=== PATIENT | female | born 1995 | race Caucasian/White ===

== ENCOUNTER 2017-10-24 07:16 | Inpatient (IN) | payer OTHER ==
--- NOTE | 2017-10-24 08:15 | HP ---
General Information - General Information Maternal Age: 22 Grav: 6 Para: 2 SAB: 0 IEA: 3 Estimated Due Date: 10/21/17 Determined By: LMP Gestational Age in Weeks and Days: 40 Weeks and 3 Days Maternal Blood Type and Rh: A Positive - Results this Serology/RPR Result: Non-Reactive Rubella Result: Immune HBsAg Result: Negative HIV Result: Negative GBS Culture Result: Negative Past Medical History Delivery History: Hx Uncomplicated Vaginal Delivery Pertinent Past Medical History: See Records Past Medical History Comment: history of drug abuse - Antepartal Records Antepartal Records: Reviewed, Uncomplicated Review of Systems Genitourinary: No Leaking Fluid Musculoskeletal: Back Pain Movement: Normal Exam Allergies/Adverse Reactions: Allergies MS Sulfa Antibiotics [Sulfa Antibiotics] Allergy (Intermediate, Verified 07:58) Hives rash - Measurements Height: 5 ft 3 in Weight: 191 lb Weight in lbs: 191 Body Mass Index (BMI): 33.8 Pre- Weight: 150 lb Weight Gained This : 41 lbs and 0 ozs - Exam Abdomen: No Upper Quadrant Pain Breast: Breast Exam Deferred CVA: No CVA Tenderness Extremities: Edema - +1 Heart: Normal Rhythm/Heart Sounds HEENT: No Significant Findings Lungs: Clear Bilaterally Rectal: Rectal Exam Deferred Reflexes: DTR 2+ Thyroid: No Thyromegaly - Cervical Exam 5cm 80% -2 - Membranes Hours Since SROM: arom 0800 EFM Findings - External Monitor Findings Baseline Heart Rate: 150 External Monitor Findings: Accelerations Present, Variability Moderate Contractions: Regular, Mild, 45-90 Seconds Assessment/Plan - Reason for Visit Reason for Visit: posterm gbs negative - Plan Plan: Induction - Date/Time of Admission Date of Admission: 10/24/17 Time of Admission: 08:00
[2017-10-24 08:21] LABS: ABS Basophils 0 10^3/ul (0-0.2); ABS Eosinophils 0.2 10^3/ul (0-0.6); ABS Lymphocytes 2.1 10^3/ul (1.0-4.8); ABS Monocytes 0.6 10^3/ul (0-0.8); ABS Neutrophils 8.1 10^3/ul (1.5-7.7); ABS Nucleated RBC 0 10^3/ul; Eosinophil % 1.5 % (0-6); Hematocrit 35 % (35-47); Hemoglobin 11.6 g/dl (12.0-16.0); Lymphocyte % 19.1 % (25-47); Mean Corpuscular HGB Conc 34 g/dl (31-36); Mean Corpuscular Hemoglobin 31 pg (27-31); Mean Corpuscular Volume 91 fL (80-97); Mean Platelet Volume 9 um3 (7.4-10.4); Nucleated Red Blood Cells % 0; Platelet Count 190 10^3/ul (150-450); Red Blood Count 3.78 10^6/ul (4.0-5.4); Red Cell Distribution Width 14 % (10.5-15)
[2017-10-24] MEDS ORDERED: Oxytocin in LR* 20 UNITS/1,000 ML BAG IVPB SCH ×2 (09:00→13:03)
[2017-10-24] MEDS ORDERED: fentaNYL* 50 MCG/ML 2 ML VIAL (100 MCG VIAL) ONE (11:16)
[2017-10-24] MEDS ORDERED: Dibucaine 1% 28.35 GM TUBE PR PRN (13:01)
[2017-10-24] MEDS ORDERED: Glycerin ADULT SUPP PR PRN (13:01)
[2017-10-24] MEDS ORDERED: Witch Hazel PAD* JAR TOPICAL PRN (13:01)
[2017-10-24] MEDS ORDERED: Fluconazole 100 MG TAB* TAB PO ONE (13:30)
[2017-10-24] MEDS: Ibuprofen TAB* 600 MG PO PRN ×2 (14:13→19:38)
[2017-10-24] MEDS: Acetaminophen TAB* 325 MG PO PRN ×2 (15:20→21:00)
[2017-10-24] MEDS: Docusate CAP* 100 MG PO SCH ×2 (15:21→19:39)
[2017-10-24] MEDS ORDERED: Simethicone TAB* 80 MG TAB.CHEW PO SCH (17:30)
[2017-10-25] MEDS: Ibuprofen TAB* 600 MG PO PRN ×2 (02:44→20:12)
[2017-10-25 06:52] LABS: ABS Basophils 0 10^3/ul (0-0.2); ABS Eosinophils 0.2 10^3/ul (0-0.6); ABS Lymphocytes 2.4 10^3/ul (1.0-4.8); ABS Monocytes 0.6 10^3/ul (0-0.8); ABS Neutrophils 8.2 10^3/ul (1.5-7.7); ABS Nucleated RBC 0 10^3/ul; Eosinophil % 1.3 % (0-6); Hematocrit 33 % (35-47); Hemoglobin 11.1 g/dl (12.0-16.0); Mean Corpuscular HGB Conc 34 g/dl (31-36); Mean Corpuscular Hemoglobin 31 pg (27-31); Mean Corpuscular Volume 92 fL (80-97); Mean Platelet Volume 8 um3 (7.4-10.4); Nucleated Red Blood Cells % 0.1; Platelet Count 155 10^3/ul (150-450); Red Blood Count 3.58 10^6/ul (4.0-5.4); Red Cell Distribution Width 14 % (10.5-15); White Blood Count 11.4 10^3/ul (3.5-10.8)
[2017-10-25] MEDS: Acetaminophen TAB* 325 MG PO PRN ×2 (08:29→23:02)
[2017-10-25] MEDS: Docusate CAP* 100 MG PO SCH ×3 (08:29→20:12)
[2017-10-25] MEDS ORDERED: Ferrous Gluconate TAB* 324 MG TAB PO SCH (09:00)
[2017-10-26 07:35] VITALS: BP 110/63
[2017-10-26] MEDS: Docusate CAP* 100 MG PO SCH (10:08)
[2017-10-26] MEDS: Ibuprofen TAB* 600 MG PO PRN (10:08)
== END 2017-10-26 11:22 | disposition home or self-care (01) | DRG 560 ==
LOC: MCHOBOUT 07:16 → MCHOB 07:49
PROVIDERS: ADMIT Obstetrics & Gynecology; ATTEND Obstetrics & Gynecology
PROC: 10E0XZZ Delivery of Products of Conception, External Approach (ICD-10-PCS; principal; 2017-10-24)
PROC: 3E033VJ Introduction of Other Hormone into Peripheral Vein, Percutaneous Approach (ICD-10-PCS; 2017-10-24)
PROC: 10907ZC Drainage of Amniotic Fluid, Therapeutic from Products of Conception, Via Natural or Artificial Opening (ICD-10-PCS; 2017-10-24)
PROC: 0KQM0ZZ Repair Perineum Muscle, Open Approach (ICD-10-PCS; 2017-10-24)
DX: O48.0 Post-term pregnancy (principal); O70.1 Second degree perineal laceration during delivery; O77.0 Labor and delivery complicated by meconium in amniotic fluid; Z3A.40 40 weeks gestation of pregnancy; Z37.0 Single live birth
CPT/HCPCS: 36415; 80307; 85025; 86850; 86900; 86901; A9270-GY; J3010

== ENCOUNTER 2018-05-19 12:18 | Day surgery (SDC) | payer OTHER ==
[2018-05-19 13:26] LABS: ABS Basophils 0 10^3/ul (0-0.2); ABS Eosinophils 0.1 10^3/ul (0-0.6); ABS Lymphocytes 2.1 10^3/ul (1.0-4.8); ABS Monocytes 0.6 10^3/ul (0-0.8); ABS Neutrophils 11.7 10^3/ul (1.5-7.7); ABS Nucleated RBC 0 10^3/ul; Eosinophil % 0.6 % (0-6); Hematocrit 34 % (35-47); Hemoglobin 11.7 g/dl (12.0-16.0); Lymphocyte % 14.4 % (25-47); Mean Corpuscular HGB Conc 34 g/dl (31-36); Mean Corpuscular Hemoglobin 28 pg (27-31); Mean Corpuscular Volume 84 fL (80-97); Mean Platelet Volume 8.5 um3 (7.4-10.4); Nucleated Red Blood Cells % 0.1; Platelet Count 253 10^3/ul (150-450); Red Blood Count 4.11 10^6/ul (4.00-5.40); Red Cell Distribution Width 13 % (10.5-15); White Blood Count 14.5 10^3/ul (3.5-10.8)
[2018-05-19 13:44] LABS: EGFR Non-African American 141.2 (>60)
--- NOTE | 2018-05-19 13:45 | ED ---
Abdominal Pain/Female - HPI Summary HPI Summary: This pt is a 23 y/o female, , presenting to [facility] c/o lower abd pain and vaginal bleeding since yesterday. 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 Her last bowel movement was 2 days ago. She notes she normally has a bowel movement every 4 days due to taking suboxone. Pt does take OTC stool softeners. Denies cough, chest pain, SOB, fever, chills, LE swelling. Pt states she has never had these symptoms in the past. LMP: 2 weeks ago. Pt denies possibility of . Pt is sexually active but states not recently. She is a current smoker and drinks alcohol occasionally. - History of Current Complaint Chief Complaint: EDVaginalBleeding Stated Complaint: ABD PAIN/VAGINAL BLEEDING Time Seen by Provider: 05/19/18 13:34 Hx Obtained From: Patient Onset/Duration: Lasting Days - 1, Still Present Timing: Days - 1 Severity Currently: Severe Pain Intensity: 9 Pain Scale Used: 0-10 Numeric Location: Other - lower abd Radiates: No Character: Cramping Aggravating Factor(s): Nothing Alleviating Factor(s): Nothing Associated Signs and Symptoms: Positive: Constipation, Vaginal Bleeding, Other: - POS: abd distension, pressure in rectum. NEG: SOB, chills, lower ext. swelling. Negative: Fever, Cough, Chest Pain Allergies/Adverse Reactions: Allergies Allergy/AdvReac Type Severity Reaction Status Date / Time Sulfa (Sulfonamide Allergy Hives Verified 05/19/18 12:25 Antibiotics) PMH/Surg Hx/FS Hx/Imm Hx Endocrine/Hematology History: Denies: Hx Anticoagulant Therapy, Hx Diabetes Cardiovascular History: Denies: Hx Hypertension Infectious Disease History: No Infectious Disease History: Denies: Traveled Outside the [place] in Last 30 Days - Family History Known Family History: Negative: Cardiac Disease, Hypertension, Diabetes - Social History Alcohol Use: Occasionally Substance Use Type: Reports: None, Heroin Substance Use Comment - Amount & Last Used: currently in outpatient rehab for heroin use. Smoking Status (MU): Light Every Day Tobacco Smoker Type: Cigarettes Have You Smoked in the Last Year: Yes Review of Systems Negative: Fever, Chills Negative: Chest Pain Negative: Shortness Of Breath, Cough Gastrointestinal: Other - abd distension, constipation Positive: Abdominal Pain - lower Genitourinary: Other - vaginal bleeding, pressure in rectum Negative: Edema - in LE All Other Systems Reviewed And Are Negative: Yes Physical Exam - Summary Physical Exam Summary: VITAL SIGNS: Reviewed. GENERAL: Patient is a well-developed and nourished female who is lying comfortable in the stretcher. Patient is not in any acute respiratory distress. HEAD AND FACE: Normocephalic and atraumatic. EYES: PERRLA, EOMI x 2, No injected conjunctiva. EARS: Hearing grossly intact. Ear canals and tympanic membranes are WNL. MOUTH: Oropharynx within normal limits. NECK: Supple, trachea is midline, no adenopathy, no JVD. CHEST: Symmetric, no tenderness at palpation LUNGS: Clear to auscultation bilaterally. No wheezing or crackles. CVS: RRR, S1 and S2 present, no murmurs or gallops appreciated. ABDOMEN: Soft, mild tenderness in the lower abdomen. Abdomen is distended. Positive bowel sounds. No rebound no guarding, and no masses palpated. No abdominal bruit or pulsations. EXTREMITIES: FROM in all major joints, no edema, no cyanosis or clubbing. NEURO: Alert and oriented x 3. No acute neurological deficits. Speech is normal. SKIN: Dry and warm Triage Information Reviewed: Yes Vital Signs On Initial Exam: Initial Vitals Temp Pulse Resp BP Pulse Ox 97.5 F 109 16 132/73 100 05/19/18 12:20 05/19/18 12:20 05/19/18 12:20 05/19/18 12:20 05/19/18 12:20 Vital Signs Reviewed: Yes Diagnostics - Vital Signs Vital Signs Temp Pulse Resp BP Pulse Ox 05/19/18 12:20 97.5 F 109 16 132/73 100 - Laboratory Lab Results: Lab Results 05/19/18 Range/Units 13:19 WBC 14.5 H (3.5-10.8) 10^3/ul RBC 4.11 (4.00-5.40) 10^6/ul Hgb 11.7 L (12.0-16.0) g/dl Hct 34 L (35-47) % MCV 84 (80-97) fL MCH 28 (27-31) pg MCHC 34 (31-36) g/dl RDW 13 (10.5-15) % Plt Count 253 (150-450) 10^3/ul MPV 8.5 (7.4-10.4) um3 Neut % (Auto) 81.0 (38-83) % Lymph % (Auto) 14.4 L (25-47) % [place] % (Auto) 3.9 (0-7) % Eos % (Auto) 0.6 (0-6) % Baso % (Auto) 0.1 (0-2) % Absolute Neuts (auto) 11.7 H (1.5-7.7) 10^3/ul Absolute Lymphs (auto) 2.1 (1.0-4.8) 10^3/ul Absolute Monos (auto) 0.6 (0-0.8) 10^3/ul Absolute Eos (auto) 0.1 (0-0.6) 10^3/ul Absolute Basos (auto) 0 (0-0.2) 10^3/ul Absolute Nucleated RBC 0 10^3/ul Nucleated RBC % 0.1 Result Diagrams: 05/19/18 19:57 05/19/18 13:19 Lab Statement: Any lab studies that have been ordered have been reviewed, and results considered in the medical decision making process. - Ultrasound No standard instances Ultrasound Interpretation: Positive (See Comments) - Transvaginal US IMPRESSION : Left-sided ectopic with a large amount of echogenic free fluid consistent with ruptured ectopic . Dr. Patrick has reviewed this report. Ultrasound Interpretation Completed By: Radiologist Re-Evaluation - Re-Evaluation First Eval Re-Evaluation Time: 15:10 Comment: I reviewed th US results with the pt. Dr. Story, OB, will see pt in the ED. Second Eval Re-Evaluation Time: 15:50 Comment: Dr. Story will admit the pt to her services. Abdominal Pain Fem Course/Dx - Course Course Of Treatment: This pt is a 23 y/o female, , presenting to [facility] c/o lower abd pain and vaginal bleeding since yesterday. 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 Her last bowel movement was 2 days ago. She notes she normally has a bowel movement every 4 days due to taking suboxone. Pt does take OTC stool softeners. Denies cough, chest pain, SOB, fever, chills, LE swelling. Pt states she has never had these symptoms in the past. LMP: 2 weeks ago. Pt denies possibility of . Pt is sexually active but states not recently. She is a current smoker and drinks alcohol occasionally. Physical exam the patient has abdominal distention and positive lower abdominal tenderness bilaterally. Blood test results shows a wbc's of 14.5, hemoglobin was given 0.7 hematocrit is 34, glucose 101, AST of 12, CRP of 9.9, beta hCG is 14,239, urinalysis positive for UTI. In the ED course the patient had 2 IV accesses the patient was given IV fluids and she was given Rocephin for the UTI. Pelvic U/A IMPRESSION: Left-sided ectopic with a large amount of echogenic free fluid consistent with ruptured ectopic . At this time I discussed my physical exam, findings and test results with Dr. Stroy, from [facility], and she came to assess and examine the patient. She reports that the patient will be admitted to her services for further workup and management. At this time the patient is hemodynamically stable, alert and oriented 3. - Diagnoses Provider Diagnoses: Ruptured ectopic - Provider Notifications Discussed Care Of Patient With: Rowan Story Time Discussed With Above Provider: 15:10 Instructed by Provider To: Other - I discussed pt care with Dr. Story, OBGYN , who will come see the pt in the ED. - Critical Care Time Critical Care Time: 75-104 min Discharge - Sign-Out/Discharge Documenting (check all that apply): Patient Departure - Admit to [facility] - Discharge Plan Condition: Stable Disposition: ADMITTED TO [facility] - Billing Disposition and Condition Condition: STABLE Disposition: Admitted to [facility] - Attestation Statements Document Initiated by Scribe: Yes Documenting Scribe: Abby Pascual Provider For Whom Scribe is Documenting (Include Credential): Ulysses Patrick MD Scribe Attestation: Abby Eason, scribed for Ulysses Patrick MD on 05/21/18 at 0749. Scribe Documentation Reviewed: Yes Provider Attestation: The documentation as recorded by the Abby barahona accurately reflects the service I personally performed and the decisions made by me, Ulysses Patrick MD
[2018-05-19 14:40] LABS: Urine Appearance Cloudy; Urine Blood 3+ (Negative); Urine Color Yellow; Urine Ketones Negative (Negative); Urine Protein Negative (Negative); Urine Red Blood Cell 3+(>10/hpf) (Absent); Urine Specific Gravity 1.012 (1.010-1.030); Urine Urobilinogen Negative (Negative); Urine White Blood Cell 2+(11-20/hpf) (Absent)
--- NOTE | 2018-05-19 15:21 | RAD ---
Indication: Vaginal bleeding. Real-time sonography of the pelvis was performed utilizing endovaginal technique. The uterus measures 8.7 x 4.7 x 5.7 cm. Endometrial echo measures up to 2.5 cm. There is a large amount of echogenic fluid in the cul-de-sac consistent with hemorrhage. Right ovary measures 3.2 x 3.2 x 3.5 cm. Left ovary measures 3.5 x 2.4 x 3.5 cm. External to the left ovary there is a gestational sac with a pole measuring 3 mm corresponding to gestational age of 6 weeks 0 days. Findings are consistent with a ectopic . IMPRESSION: Left-sided ectopic with a large amount of echogenic free fluid consistent with ruptured ectopic . Sherry the cardiology clinical consultant notified Dr. Patrick at the time of the examination.
[2018-05-19] MEDS ORDERED: cefTRIAXone(*) 1 GM in NS 0.9% 50 ML* 50 ML IVPB ONE (15:37)
[2018-05-19] MEDS ORDERED: NS 0.9% 1000 ML* 1,000 ML IV ONE (15:46)
[2018-05-19] MEDS ORDERED: Sodium Citrate/Citric Acid* 15 ML UDC ONE (15:56)
--- NOTE | 2018-05-19 16:27 | HP ---
H&P (Free Text) History and Physical: HPI: Pt was a few days late for her period but took a test Sat that was negative. Then she started spotting sat evening and saturday midday began to develop lower abdominal pain and pressure. The pain continued overnight and today it was too much so she went to the ED. +Nausea. Has not eaten anything since this am. 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 3 NVD, last one in October of this year. Had planned pp BTL but got busy and missed her appt. Soc Hx: Current tobacco user, <5cig/day EXAM Gen: pt in significant painful distress, tearful Abd: soft, mod tender in all quadrants Ext: neg calf pain or tenderness A: Ruptured left ectopic with hemoperitoneum, stable currently P: Admit, laparoscopy for removal of ectopic. Reviewed procedure with pt. Consents signed. OR team notified.
[2018-05-19] MEDS ORDERED: fentaNYL* 50 MCG/ML 2 ML VIAL (100 MCG VIAL) ONE ×2 (17:11→17:59)
[2018-05-19] MEDS ORDERED: Lidocaine 2% PF * 5 ML VIAL ONE (17:11)
[2018-05-19] MEDS ORDERED: Rocuronium* 10 MG/ML VIAL ONE (17:12)
[2018-05-19] MEDS ORDERED: Glycopyrrolate IV* 0.2 MG/ML 1 ML VIAL ONE (18:01)
[2018-05-19] MEDS ORDERED: Neostigmine Methylsulfate* 1 MG/ML 10 ML VIAL (1 mg/ml) ONE (18:01)
[2018-05-19] MEDS ORDERED: Ondansetron INJ* 2 MG/ML VIAL IV PRN (18:26)
[2018-05-19] MEDS ORDERED: Naloxone* 0.4 MG/ML 1 ML VIAL IV PRN (18:26)
[2018-05-19] MEDS ORDERED: fentaNYL* 50 MCG/ML 2 ML VIAL (100 MCG VIAL) IV PRN (18:26)
[2018-05-19] MEDS ORDERED: Acetaminophen IV 1GM/100ML * 1,000 MG/100 ML VIAL IVPB ONE (18:32)
[2018-05-19] MEDS ORDERED: Acetaminophen IV 1GM/100ML * 100 ML ONE (18:34)
[2018-05-19] MEDS ORDERED: Buprenorphine/Naloxone 8-2 MG SL TAB* 1 TAB PO SCH (19:00)
[2018-05-19 20:07] LABS: Hematocrit 28 % (35-47); Hemoglobin 9.5 g/dl (12.0-16.0)
[2018-05-19 21:24] VITALS: BP 112/56
--- NOTE | 2018-05-20 15:38 | OP ---
DATE OF OPERATION: 05/19/18 [facility] DATE OF : [birth year] SURGEON: Rowan Story MD BEADER: Dr. Bailon. PRE-OP DIAGNOSES: Ruptured left ectopic , hemoperitoneum. POST-OP DIAGNOSES: Ruptured left ectopic , hemoperitoneum. OPERATIVE PROCEDURE: Exploratory laparotomy. ESTIMATED BLOOD LOSS: 200 mL. FLUIDS: Crystalloid. FINDINGS: Hemoperitoneum, left tubal with active bleeding. COMPLICATIONS: None. DRAINS: The bladder was drained of urine prior to the procedure. DESCRIPTION OF PROCEDURE: After informed consent was signed, the patient was taken to the operating room where she was given general anesthesia that was found to be adequate. She was prepped and draped in the dorsal lithotomy position in the [facility]. A time-out was performed. The bladder was drained of urine and a Hulka manipulator was placed into the cervix. Gloves were changed and attention was turned to the abdomen. The infraumbilical fold was grasped and injected with lidocaine with epinephrine. Then, a 10-mm incision was made with a scalpel in a vertical fashion. Blunt dissection was carried down to the layer of fascia, which was grasped with 2 Christian clamps, tented up, and incised in the midline with the scalpel. The incision was extended laterally with blunt pressure. 0-vicryl stay sutures were placed in the fascia. The peritoneum was entered bluntly and the trocar was inserted and entrance into the abdominal cavity was confirmed. On inspection of the abdomen , the previously mentioned findings were noted. Suction was used to remove some of the blood and clots from the abdomen until the left tube was visualized where the ectopic was seen. The tube was grasped with blunt graspers and a LigaSure device was used to clamp, cauterize, and cut through the mid portion of the tube removing the ectopic in the lateral portion of the tube. Good hemostasis was seen at this pedicle. The abdomen was then irrigated and suctioned until the blood and clot was removed. The right ovary and tube appeared normal and the uterus appeared normal. There were no obvious abnormalities in the upper abdomen either. The left pedicle was inspected once more and good hemostasis was noted. The tube was removed through the umbilical port. The lateral ports removed. Abdomen was deflated. The umbilical incision was closed with one 0 Vicryl on the fascia and 4-0 Vicryl subcuticular suture on the skin. The lateral ports were closed with one suture of 4-0 Vicryl and surgical glue. The patient was cleaned. The uterine manipulator was removed. The patient was placed back in the supine position, moved to the recovery room in stable condition. [id number]/[facility] #: [id number] MTDD
== END 2018-05-19 16:19 | disposition home or self-care (01) ==
LOC: ED 12:18 → OR 16:19
PROVIDERS: ATTEND Obstetrics & Gynecology
DX: O00.102 Left tubal pregnancy without intrauterine pregnancy (principal); K66.1 Hemoperitoneum; Z72.0 Tobacco use; R10.30 Lower abdominal pain, unspecified; N93.9 Abnormal uterine and vaginal bleeding, unspecified; F11.11 Opioid abuse, in remission
CPT/HCPCS: 36415; 76817; 80053; 81003; 81015; 83605; 83690; 84702; 85014; 85018; 85025; 86140; 86850; 86900; 86901; 86922; 87077; 87086; 87186; 88305; 96365; 99284; A9270-GY; J0696; J2710; J3010

== ENCOUNTER → 2018-09-17 23:57 | Emergency (ER) | payer MEDICAID, OTHER ==
[2018-09-18 00:01] VITALS: BP 142/82
--- NOTE | 2018-09-18 00:17 | ED ---
Influenza-Like Illness - HPI Summary HPI Summary: 23-year-old female presents with flulike illness for the past 2 days. Her friends were all just diagnosed with flu. She states she's been having a cough. she admits to sinus congestion and muscle aches. She has been taking ibuprofen for pain. She has no medical conditions. Denies any shortness of breath or chest pain. No abdominal pain. No nausea vomiting diarrhea. - History of Current Complaint Chief Complaint: EDFluSymptoms Time Seen by Provider: 09/18/18 00:09 - Allergy/Home Medications Allergies/Adverse Reactions: Allergies Allergy/AdvReac Type Severity Reaction Status Date / Time Sulfa (Sulfonamide Allergy Hives Verified 09/18/18 00:01 Antibiotics) PMH/Surg Hx/FS Hx/Imm Hx Endocrine/Hematology History: Denies: Hx Anticoagulant Therapy, Hx Diabetes Cardiovascular History: Denies: Hx Hypertension Respiratory History: Denies: Hx Asthma Infectious Disease History: No Infectious Disease History: Denies: Traveled Outside the [place] in Last 30 Days - Family History Known Family History: Negative: Cardiac Disease, Hypertension, Diabetes - Social History Alcohol Use: Occasionally Substance Use Type: Reports: None, Heroin Substance Use Comment - Amount & Last Used: currently in outpatient rehab for heroin use. Smoking Status (MU): Light Every Day Tobacco Smoker Type: Cigarettes Have You Smoked in the Last Year: Yes Review of Systems Positive: Fever Positive: Nasal Discharge Negative: Chest Pain Positive: Cough. Negative: Shortness Of Breath Negative: Abdominal Pain, Vomiting, Diarrhea, Nausea All Other Systems Reviewed And Are Negative: Yes Physical Exam Triage Information Reviewed: Yes Vital Signs On Initial Exam: Initial Vitals Temp Pulse Resp BP Pulse Ox 98.6 F 117 16 142/82 100 09/17/18 23:59 09/17/18 23:59 09/17/18 23:59 09/17/18 23:59 09/17/18 23:59 Vital Signs Reviewed: Yes Appearance: Positive: Well-Appearing Skin: Positive: Warm, Dry Head/Face: Positive: Normal Head/Face Inspection Eyes: Positive: Normal, EOMI, MANJULA, Conjunctiva Clear ENT: Positive: Normal ENT inspection, Pharynx normal, TMs normal Respiratory/Lung Sounds: Positive: Clear to Auscultation, Breath Sounds Present Cardiovascular: Positive: Normal, RRR Abdomen Description: Positive: Nontender, Soft Bowel Sounds: Positive: Present Musculoskeletal: Positive: Normal Neurological: Positive: Normal Psychiatric: Positive: Normal Diagnostics - Vital Signs Vital Signs Temp Pulse Resp BP Pulse Ox 09/17/18 23:59 98.6 F 117 16 142/82 100 - Laboratory Lab Statement: Any lab studies that have been ordered have been reviewed, and results considered in the medical decision making process. Flu Symptom Course/Dx - Course Course Of Treatment: 23-year-old female presents with flulike illness for the past 2 days. Her friends were all just diagnosed with flu. She states she's been having a cough. she admits to sinus congestion and muscle aches. She has been taking ibuprofen for pain. She has no medical conditions. Denies any shortness of breath or chest pain. No abdominal pain. No nausea vomiting diarrhea. On exam lungs clear to auscultation. Discuss with everyone else having flu likely has the flu. flu A positive. Told treat supportively. Patient understands agrees with plan. - Diagnoses Differential Diagnosis/HQI/PQRI: Positive: Influenza, Pneumonia, Upper Respiratory Infection Provider Diagnoses: Influenza Discharge - Sign-Out/Discharge Documenting (check all that apply): Patient Departure - Discharge Plan Condition: Good Disposition: HOME Patient Education Materials: Influenza (ED) Referrals: Madhuri Freeman DO [Primary Care Provider] - Additional Instructions: Alternate Tylenol and ibuprofen every 6 hours Use saline rinses in nose for nasal congestion can use otc cough medication as needed for cough Return to ED if develop any new or worsening symptoms - Billing Disposition and Condition Condition: GOOD Disposition: Home
[2018-09-18 00:35] LABS: Influenza A Molecular POSITIVE (Negative)
== END | disposition home or self-care (01) ==
LOC: ED 23:57
DX: J11.1 Influenza due to unidentified influenza virus with other respiratory manifestations (principal); R50.9 Fever, unspecified; R05 Cough; F17.210 Nicotine dependence, cigarettes, uncomplicated; Z88.2 Allergy status to sulfonamides
CPT/HCPCS: 99281

== ENCOUNTER → 2018-11-14 03:59 | Emergency (ER) | payer OTHER ==
[~2018-11-14 03:59] MED LIST: Ibuprofen TAB* 600 MG PO ONE
--- NOTE | 2018-11-14 04:30 | ED ---
Lower Extremity - HPI Summary HPI Summary: This patient is a 23 year old F presenting to [facility] with a chief complaint of swelling in legs bilaterally since 11/07/18. The patient rates the pain 4/10 in severity. Patient reports throbbing legs and spider veins in her legs. She is concerned it could be related to an allergic reaction to Macrobid she had . Patient denies that she is on control. - History of Current Complaint Chief Complaint: EDExtremityLower Stated Complaint: "LEGS SWOLLEN FOR A WEEK" PER PT Time Seen by Provider: 11/14/18 04:18 Hx Obtained From: Patient Onset of Pain: Days - 11/07/18 Onset/Duration: Still Present Severity Currently: Moderate Pain Intensity: 4 Pain Scale Used: 0-10 Numeric Timing: Constant Location: Is Diffuse - Lower extremities Character Of Pain: Throbbing Associated Signs And Symptoms: Positive: Swelling, Other - "spider veins" in her bilateral LE - Allergies/Home Medications Allergies/Adverse Reactions: Allergies Allergy/AdvReac Type Severity Reaction Status Date / Time nitrofurantoin Allergy Hives Verified 11/14/18 04:07 [From Macrobid] Sulfa (Sulfonamide Allergy Hives Verified 09/18/18 00:01 Antibiotics) Home Medications: Home Medications Buprenorp/Nalox 8-2 MG FILM [Suboxone 8 mg-2 mg Sl Film] 1 each SL DAILY [History Confirmed 11/14/18] cloNIDine TAB* [Catapres 0.1 MG TAB*] 1 tab PO BID 11/14/18 [History Confirmed 11/14/18] hydrOXYzine HCL TAB* [Atarax TAB 50 MG *] 1 tab PO BID PRN 11/14/18 [History Confirmed 11/14/18] PMH/Surg Hx/FS Hx/Imm Hx Endocrine/Hematology History: Denies: Hx Anticoagulant Therapy, Hx Diabetes Cardiovascular History: Denies: Hx Hypertension Respiratory History: Denies: Hx Asthma - Surgical History Surgery Procedure, Year, and Place: None Infectious Disease History: No Infectious Disease History: Denies: Traveled Outside the [place] in Last 30 Days - Family History Known Family History: Negative: Cardiac Disease, Hypertension, Diabetes - Social History Alcohol Use: None Substance Use Type: Reports: Prescribed Substance Use Comment - Amount & Last Used: suboxone Smoking Status (MU): Light Every Day Tobacco Smoker Type: Cigarettes Have You Smoked in the Last Year: Yes Review of Systems Negative: Fever Positive: Edema - Swollen bilat LE, Other - Throbbing legs and "spider veins" in bilat LE All Other Systems Reviewed And Are Negative: Yes Physical Exam - Summary Physical Exam Summary: VITAL SIGNS: Reviewed. GENERAL: Patient is a well-developed and nourished FEMALE who is lying comfortable in the stretcher. Patient is not in any acute respiratory distress. HEAD AND FACE: No signs of trauma. No ecchymosis, hematomas or skull depressions. No sinus tenderness. EYES: PERRLA, EOMI x 2, No injected conjunctiva, no nystagmus. EARS: Hearing grossly intact. Ear canals and tympanic membranes are within normal limits. MOUTH: Oropharynx within normal limits. NECK: Supple, trachea is midline, no adenopathy, no JVD, no carotid bruit, no c- spine tenderness, neck with full ROM. CHEST: Symmetric, no tenderness at palpation LUNGS: Clear to auscultation bilaterally. No wheezing or crackles. CVS: Regular rate and rhythm, S1 and S2 present, no murmurs or gallops appreciated. ABDOMEN: Soft, non-tender. No signs of distention. No rebound no guarding, and no masses palpated. Bowel sounds are normal. EXTREMITIES: FROM in all major joints, no edema, no cyanosis or clubbing. NEURO: Alert and oriented x 3. No acute neurological deficits. Speech is normal and follows commands. SKIN: Dry and warm Triage Information Reviewed: Yes Vital Signs On Initial Exam: Initial Vitals Temp Pulse Resp BP Pulse Ox 97.4 F 72 16 133/87 99 11/14/18 04:00 11/14/18 04:00 11/14/18 04:00 11/14/18 04:00 11/14/18 04:00 Vital Signs Reviewed: Yes Diagnostics - Vital Signs Vital Signs Temp Pulse Resp BP Pulse Ox 11/14/18 04:00 97.4 F 72 16 133/87 99 - Laboratory Lab Statement: Any lab studies that have been ordered have been reviewed, and results considered in the medical decision making process. Lower Extremity Course/Dx - Course Course Of Treatment: This patient is a 23 year old F presenting to [facility] with a chief complaint of swelling in legs bilaterally since 11/07/18. D-dimer showed 236 H. Patient will be d/c with dx of leg pain. - Diagnoses Provider Diagnoses: Leg pain Discharge - Sign-Out/Discharge Documenting (check all that apply): Patient Departure - D/C home Patient Received Moderate/Deep Sedation with Procedure: No - Discharge Plan Condition: Stable Disposition: HOME Patient Education Materials: Leg Pain (ED) Referrals: Madhuri Freeman DO [Primary Care Provider] - 2 Days Additional Instructions: PLEASE RETURN TO THE ED TO IMMEDIATELY FOR WORSENING OR CONCERNING SYMPTOMS. - Attestation Statements Document Initiated by Scribe: Yes Documenting Scribe: Amanuel Hewitt Provider For Whom Scribe is Documenting (Include Credential): Jaylin Spears MD Scribe Attestation: IAmanuel, scribed for Jaylin Spears MD on 11/14/18 at 0504. Status of Scribe Document: Ready
[2018-11-14 05:12] VITALS: BP 118/81
== END | disposition home or self-care (01) ==
LOC: ED 03:59
DX: M79.605 Pain in left leg (principal); M79.604 Pain in right leg; R60.0 Localized edema; I83.90 Asymptomatic varicose veins of unspecified lower extremity; Z88.1 Allergy status to other antibiotic agents; Z88.2 Allergy status to sulfonamides; F17.210 Nicotine dependence, cigarettes, uncomplicated
CPT/HCPCS: 36415; 85379; 99282; A9270-GY

== ENCOUNTER → 2018-12-30 13:24 | Emergency (ER) | payer OTHER ==
--- NOTE | 2018-12-30 14:12 | ED ---
Skin Complaint - HPI Summary HPI Summary: Pt. is a 23 y.o female who presents to the ER for rash to face and scalp. Pt. states she has been getting "pimples" on her face and scalp that are itchy. Pt. states area get red and swollen and she pops them and puss is expressed. Pt. states they then scar and her hair is falling out where pustules are located. Pt. has a psychiatric hx. Sxs are mild in severity. No current modifying factors. - History of Current Complaint Chief Complaint: EDRashSkinAbscess Time Seen by Provider: 12/30/18 13:38 Stated Complaint: SKIN/SCALP ISSUE PER PT Hx Obtained From: Patient Pain Intensity: 2 - Allergy/Home Medications Allergies/Adverse Reactions: Allergies Allergy/AdvReac Type Severity Reaction Status Date / Time nitrofurantoin Allergy Hives Verified 11/14/18 04:07 [From Macrobid] Sulfa (Sulfonamide Allergy Hives Verified 09/18/18 00:01 Antibiotics) PMH/Surg Hx/FS Hx/Imm Hx Previously Healthy: Yes Endocrine/Hematology History: Denies: Hx Anticoagulant Therapy, Hx Diabetes Cardiovascular History: Denies: Hx Hypertension Respiratory History: Denies: Hx Asthma - Surgical History Surgery Procedure, Year, and Place: None Infectious Disease History: No Infectious Disease History: Denies: Traveled Outside the [place] in Last 30 Days - Family History Known Family History: Negative: Cardiac Disease, Hypertension, Diabetes - Social History Occupation: Unemployed Lives: With Family Alcohol Use: None Substance Use Type: Reports: Prescribed Substance Use Comment - Amount & Last Used: suboxone Smoking Status (MU): Light Every Day Tobacco Smoker Type: Cigarettes Have You Smoked in the Last Year: Yes Review of Systems Constitutional: Negative Negative: Fever, Chills Gastrointestinal: Negative Positive: Other - "pimples" to face and scalp All Other Systems Reviewed And Are Negative: Yes Physical Exam Triage Information Reviewed: Yes Vital Signs On Initial Exam: Initial Vitals Temp Pulse Resp BP Pulse Ox 97.6 F 86 18 127/57 100 12/30/18 13:29 12/30/18 13:29 12/30/18 13:29 12/30/18 13:29 12/30/18 13:29 Vital Signs Reviewed: Yes Appearance: Positive: Well-Appearing - Pt. sitting on bed in NAD. Family member present. Skin: Positive: Warm, Dry, Other - Numerous scars and healing wounds to face and scalp. Areas on scalp appear inflammed. No areas of fluctuance or induration. Head/Face: Positive: Normal Head/Face Inspection Eyes: Positive: Normal, EOMI Neck: Positive: Supple Neurological: Positive: Normal, CN Intact II-III Psychiatric: Positive: Affect/Mood Appropriate Diagnostics - Vital Signs Vital Signs Temp Pulse Resp BP Pulse Ox 12/30/18 13:29 97.6 F 86 18 127/57 100 - Laboratory Lab Statement: Any lab studies that have been ordered have been reviewed, and results considered in the medical decision making process. Course/Dx - Course Course Of Treatment: Pt. presenting with wounds to face and scalp in variou stages of healing. No drainable abscesses. Will place on a course of doxycycline. To avoid popping and scratching area. Given INFO for dermatology for f.u. Pt. understands and agrees with plan. - Differential Diagnoses - Skin Complaint Differential Diagnoses: Abscess, Cellulitis, Contact Dermatitis, Eczema, Head Lice, Scabies, Tinea - Diagnoses Provider Diagnoses: Skin pustule Discharge - Sign-Out/Discharge Documenting (check all that apply): Patient Departure Patient Received Moderate/Deep Sedation with Procedure: No - Discharge Plan Condition: Good Disposition: HOME Prescriptions: DOXYcycline CAP(*) [DOXYcycline 100MG CAP(*)] 100 mg PO BID #20 cap Patient Education Materials: Furunculosis and Carbunculosis (ED) Referrals: Disha Wallace [Medical Doctor] - Madhuri Freeman DO [Primary Care Provider] - Additional Instructions: Call Dr. Wallace's office today to schedule a close follow up appointment Take antibiotic as directed Avoid popping and scratching skin Return to ER if symptoms change or worsen - Billing Disposition and Condition Condition: GOOD Disposition: Home
[2018-12-30 14:18] VITALS: BP 87/57
== END | disposition home or self-care (01) ==
LOC: ED 13:24
DX: L08.9 Local infection of the skin and subcutaneous tissue, unspecified (principal); F17.210 Nicotine dependence, cigarettes, uncomplicated; Z88.2 Allergy status to sulfonamides; Z88.8 Allergy status to other drugs, medicaments and biological substances
CPT/HCPCS: 99281

== ENCOUNTER 2019-05-07 15:24 | Emergency (ER) | payer OTHER ==
[2019-05-07] MEDS ORDERED: NS 0.9% 1000 ML** 1,000 ML IV ONE (15:50)
[2019-05-07] MEDS ORDERED: Ondansetron INJ* 2 MG/ML VIAL IV ONE (15:54)
[2019-05-07] MEDS ORDERED: Ketorolac INJ* 30 MG/ML 1 ML VIAL IV ONE (15:54)
[2019-05-07 16:14] LABS: ABS Lymphocytes 1.4 10^3/ul (1.0-4.8); ABS Monocytes 0.5 10^3/ul (0-0.8); ABS Neutrophils 8.1 10^3/ul (1.5-7.7); Eosinophil % 0.4 %; Hematocrit 42 % (35-47); Hemoglobin 14.6 g/dL (12.0-16.0); Lymphocyte % 13.9 %; Mean Corpuscular HGB Conc 35 g/dL (31-36); Mean Corpuscular Hemoglobin 29 pg (27-31); Mean Corpuscular Volume 83 fL (80-97); Mean Platelet Volume 7.9 fL (7.4-10.4); Platelet Count 205 10^3/uL (150-450); Red Blood Count 5.09 10^6 /uL (3.70-4.87); Red Cell Distribution Width 14 % (10-15); White Blood Count 10.1 10^3/uL (3.5-10.8)
[2019-05-07 16:16] LABS: Urine Appearance Cloudy; Urine Bacteria Absent (Absent); Urine Bilirubin Negative (Negative); Urine Blood 1+ (Negative); Urine Color Yellow; Urine Glucose Negative (Negative); Urine Ketones Negative (Negative); Urine Nitrite Positive (Negative); Urine Protein 1+(30 mg/dL) (Negative); Urine Red Blood Cell Trace(0-2/hpf) (Absent); Urine Specific Gravity 1.011 (1.010-1.030); Urine Squamous Epithelial Cell Present (Absent); Urine Urobilinogen Negative (Negative); Urine White Blood Cell 3+(>20/hpf) (Absent)
[2019-05-07 16:38] LABS: ALT 102 U/L (7-52); AST 46 U/L (13-39); Albumin 4.1 g/dL (3.2-5.2); Albumin/Globulin Ratio 1.6 (1-3); Alkaline Phosphatase 52 U/L (34-104); Amylase 35 U/L (29-103); Anion Gap 7 mmol/L (2-11); BUN/Creatinine Ratio 9.1 (8-20); Blood Urea Nitrogen 5 mg/dL (6-24); C Reactive Protein 53.96 mg/L (<8.01); CO2 Carbon Dioxide 22 mmol/L (22-32); Calcium 8.9 mg/dL (8.6-10.3); Chloride 107 mmol/L (101-111); EGFR African American 165.7 (>60); Globulin 2.6 g/dL (2-4); Glucose 125 mg/dL (70-100); Potassium 3.9 mmol/L (3.5-5.0); Sodium 136 mmol/L (135-145); Total Protein 6.7 g/dL (6.4-8.9)
[2019-05-07 16:39] LABS: HCG Pregnancy < 0.60 mIU/mL
[2019-05-07 16:49] LABS: Urine Benzodiazepine Screen None Detected (None Detect); Urine Opiates Screen None Detected (None Detect)
[2019-05-07] MEDS ORDERED: cefTRIAXone(*) 1 GM in NS 0.9% 50 ML* 50 ML IVPB ONE (16:49)
[2019-05-07 17:34] VITALS: BP 112/70
--- NOTE | 2019-05-08 08:04 | ED ---
GI/ HPI - HPI Summary HPI Summary: This patient is a 24-year-old female presenting to the ED if symptoms of UTI 2 weeks. She states she is now having severe right-sided flank pain. No history of kidney stones or pyelonephritis. No history or chance of STDs or . Patient states she has been having frequency, urgency, burning with darkened urine over the course of the past 2 weeks, however has been trying to drink water to improve her symptoms. 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 Mother at bedside also requesting drug screen for her PO. She denies any other symptoms including chest pain, shortness of breath, abdominal pain. She does endorse some intermittent nausea, no vomiting. - History of Current Complaint Chief Complaint: EDUrogenitalProblems Time Seen by Provider: 05/07/19 15:29 Stated Complaint: BACK AND ABDOMINAL PAIN PER PT Hx Obtained From: Patient Onset/Duration: Started Weeks Ago Timing: Constant Severity: Severe Current Severity: Severe Pain Intensity: 3 Location of Pain: Suprapubic, Flank Pain Characteristics: Sharp Associated Signs and Symptoms: Positive: UTI Symptoms Aggravating Factor(s): Nothing Alleviating Factor(s): Nothing - Allergy/Home Medications Allergies/Adverse Reactions: Allergies Allergy/AdvReac Type Severity Reaction Status Date / Time nitrofurantoin Allergy Hives Verified 05/07/19 15:28 [From Macrobid] Sulfa (Sulfonamide Allergy Hives Verified 05/07/19 15:28 Antibiotics) Home Medications: Home Medications Buprenorphine HCl/Naloxone HCl [Buprenorp-Nalox 8-2 mg Sl Film] 1 each SL DAILY 05/07/19 [History Confirmed 05/07/19] Cefdinir [Cefdinir 300 MG CAP] 300 mg PO DAILY 05/07/19 [History Confirmed 05/07] Fluconazole [Diflucan 100 mg tab] 100 mg PO DAILY 05/07/19 [History Confirmed ] Topiramate [Topiramate ER 25 mg cap] 25 mg PO DAILY 05/07/19 [History Confirmed 05/07/19] buPROPion HCl [Bupropion HCl Xl] 150 mg PO DAILY 05/07/19 [History Confirmed 08/13] PMH/Surg Hx/FS Hx/Imm Hx Previously Healthy: Yes Endocrine/Hematology History: Denies: Hx Anticoagulant Therapy, Hx Diabetes Cardiovascular History: Denies: Hx Hypertension Respiratory History: Denies: Hx Asthma - Surgical History Surgery Procedure, Year, and Place: None - Immunization History Hx Pertussis Vaccination: No Immunizations Up to Date: Yes Infectious Disease History: No Infectious Disease History: Denies: Traveled Outside the [place] in Last 30 Days - Family History Known Family History: Negative: Cardiac Disease, Hypertension, Diabetes - Social History Occupation: Unemployed Lives: With Family Alcohol Use: None Hx Substance Use: Yes Substance Use Type: Reports: Prescribed Substance Use Comment - Amount & Last Used: suboxone Hx Tobacco Use: Yes Smoking Status (MU): Light Every Day Tobacco Smoker Type: Cigarettes Have You Smoked in the Last Year: Yes Review of Systems Constitutional: Negative Negative: Fever, Chills, Fatigue, Skin Diaphoresis Negative: Palpitations, Chest Pain Negative: Shortness Of Breath, Cough Positive: Nausea Positive: see HPI, burning, dysuria, frequency, flank pain, pain, urgency Musculoskeletal: Negative Skin: Negative All Other Systems Reviewed And Are Negative: Yes Physical Exam Triage Information Reviewed: Yes Vital Signs On Initial Exam: Initial Vitals Temp Pulse Resp BP Pulse Ox 98.9 F 109 18 120/85 99 05/07/19 15:25 05/07/19 15:25 05/07/19 15:25 05/07/19 15:25 05/07/19 15:25 Vital Signs Reviewed: Yes Appearance: Positive: Pain Distress Skin: Positive: Warm, Skin Color Reflects Adequate Perfusion Head/Face: Positive: Normal Head/Face Inspection Eyes: Positive: EOMI, Conjunctiva Clear Neck: Positive: Supple, No Lymphadenopathy Respiratory/Lung Sounds: Positive: Clear to Auscultation, Breath Sounds Present Cardiovascular: Positive: RRR, Pulses are Symmetrical in both Upper and Lower Extremities Abdomen Description: Positive: Nontender, Soft, CVA Tenderness (R). Negative: CVA Tenderness (L) Bowel Sounds: Positive: Present Musculoskeletal: Positive: Normal, Strength/ROM Intact Neurological: Positive: Sensory/Motor Intact, Alert, Oriented to Person Place, Time, Speech Normal Psychiatric: Positive: Affect/Mood Appropriate AVPU Assessment: Alert Diagnostics - Vital Signs Vital Signs Temp Pulse Resp BP Pulse Ox 05/07/19 17:33 99 F 104 16 112/70 99 05/07/19 17:31 103 112/70 100 05/07/19 17:00 105 98 09/12/19 16:55 103 99 05/07/19 15:25 98.9 F 109 18 120/85 99 - Laboratory Lab Results: Lab Results 05/07/19 05/07/19 05/07/19 Range/Units 15:45 16:08 16:08 WBC 10.1 (3.5-10.8) 10^3/uL RBC 5.09 H (3.70-4.87) 10^6 /uL Hgb 14.6 (12.0-16.0) g/dL Hct 42 (35-47) % MCV 83 (80-97) fL MCH 29 (27-31) pg MCHC 35 (31-36) g/dL RDW 14 (10-15) % Plt Count 205 (150-450) 10^3/uL MPV 7.9 (7.4-10.4) fL Neut % (Auto) 80.3 % Lymph % (Auto) 13.9 % Faulk % (Auto) 5.2 % Eos % (Auto) 0.4 % Baso % (Auto) 0.2 % Absolute Neuts (auto) 8.1 H (1.5-7.7) 10^3/ul Absolute Lymphs (auto) 1.4 (1.0-4.8) 10^3/ul Absolute Monos (auto) 0.5 (0-0.8) 10^3/ul Absolute Eos (auto) 0.0 (0-0.6) 10^3/ul Absolute Basos (auto) 0.0 (0-0.2) 10^3/ul Absolute Nucleated RBC 0.0 10^3/ul Nucleated RBC % 0.0 Sodium 136 (135-145) mmol/L Potassium 3.9 (3.5-5.0) mmol/L Chloride 107 (101-111) mmol/L Carbon Dioxide 22 (22-32) mmol/L Anion Gap 7 (2-11) mmol/L BUN 5 L (6-24) mg/dL Creatinine 0.55 (0.51-0.95) mg/dL Est GFR ( Amer) 165.7 (>60) Est GFR (Non-Af Amer) 137.0 (>60) BUN/Creatinine Ratio 9.1 (8-20) Glucose 125 H (70-100) mg/dL Lactic Acid (0.5-2.0) mmol/L Calcium 8.9 (8.6-10.3) mg/dL Magnesium 2.0 (1.9-2.7) mg/dL Total Bilirubin 0.60 (0.2-1.0) mg/dL AST 46 H (13-39) U/L ALT 102 H (7-52) U/L Alkaline Phosphatase 52 (34-104) U/L C-Reactive Protein 53.96 H (<8.01) mg/L Total Protein 6.7 (6.4-8.9) g/dL Albumin 4.1 (3.2-5.2) g/dL Globulin 2.6 (2-4) g/dL Albumin/Globulin Ratio 1.6 (1-3) Amylase 35 (29-103) U/L Lipase 12 (11.0-82.0) U/L Beta HCG, Quant < 0.60 mIU/mL Urine Color Yellow Urine Appearance Cloudy Urine pH 8.0 (5-9) Ur Specific Trosper 1.011 (1.010-1.030) Urine Protein 1+(30 mg/dl) A (Negative) Urine Ketones Negative (Negative) Urine Blood 1+ A (Negative) Urine Nitrate Positive A (Negative) Urine Bilirubin Negative (Negative) Urine Urobilinogen Negative (Negative) Ur Leukocyte Esterase 3+ A (Negative) Urine WBC (Auto) 3+(>20/hpf) A (Absent) Urine RBC (Auto) Trace(0-2/hpf) (Absent) Ur Squamous Epith Cells Present A (Absent) Urine Bacteria Absent (Absent) Urine Glucose Negative (Negative) Urine Opiates Screen (None Detect) Ur Barbiturates Screen (None Detect) Ur Phencyclidine Scrn (None Detect) Ur Amphetamines Screen (None Detect) U Benzodiazepines Scrn (None Detect) Urine Cocaine Screen (None Detect) U Cannabinoids Screen (None Detect) 05/07/19 05/07/19 Range/Units 16:08 16:10 WBC (3.5-10.8) 10^3/uL RBC (3.70-4.87) 10^6 /uL Hgb (12.0-16.0) g/dL Hct (35-47) % MCV (80-97) fL MCH (27-31) pg MCHC (31-36) g/dL RDW (10-15) % Plt Count (150-450) 10^3/uL MPV (7.4-10.4) fL Neut % (Auto) % Lymph % (Auto) % Faulk % (Auto) % Eos % (Auto) % Baso % (Auto) % Absolute Neuts (auto) (1.5-7.7) 10^3/ul Absolute Lymphs (auto) (1.0-4.8) 10^3/ul Absolute Monos (auto) (0-0.8) 10^3/ul Absolute Eos (auto) (0-0.6) 10^3/ul Absolute Basos (auto) (0-0.2) 10^3/ul Absolute Nucleated RBC 10^3/ul Nucleated RBC % Sodium (135-145) mmol/L Potassium (3.5-5.0) mmol/L Chloride (101-111) mmol/L Carbon Dioxide (22-32) mmol/L Anion Gap (2-11) mmol/L BUN (6-24) mg/dL Creatinine (0.51-0.95) mg/dL Est GFR ( Amer) (>60) Est GFR (Non-Af Amer) (>60) BUN/Creatinine Ratio (8-20) Glucose (70-100) mg/dL Lactic Acid 1.5 (0.5-2.0) mmol/L Calcium (8.6-10.3) mg/dL Magnesium (1.9-2.7) mg/dL Total Bilirubin (0.2-1.0) mg/dL AST (13-39) U/L ALT (7-52) U/L Alkaline Phosphatase (34-104) U/L C-Reactive Protein (<8.01) mg/L Total Protein (6.4-8.9) g/dL Albumin (3.2-5.2) g/dL Globulin (2-4) g/dL Albumin/Globulin Ratio (1-3) Amylase (29-103) U/L Lipase (11.0-82.0) U/L Beta HCG, Quant mIU/mL Urine Color Urine Appearance Urine pH (5-9) Ur Specific Trosper (1.010-1.030) Urine Protein (Negative) Urine Ketones (Negative) Urine Blood (Negative) Urine Nitrate (Negative) Urine Bilirubin (Negative) Urine Urobilinogen (Negative) Ur Leukocyte Esterase (Negative) Urine WBC (Auto) (Absent) Urine RBC (Auto) (Absent) Ur Squamous Epith Cells (Absent) Urine Bacteria (Absent) Urine Glucose (Negative) Urine Opiates Screen None detected (None Detect) Ur Barbiturates Screen None detected (None Detect) Ur Phencyclidine Scrn None detected (None Detect) Ur Amphetamines Screen None detected (None Detect) U Benzodiazepines Scrn None detected (None Detect) Urine Cocaine Screen None detected (None Detect) U Cannabinoids Screen None detected (None Detect) Result Diagrams: 05/07/19 16:08 05/07/19 16:08 Lab Statement: Any lab studies that have been ordered have been reviewed, and results considered in the medical decision making process. GIGU Course/Dx - Course Course Of Treatment: During his questions the patient's evaluated for severe right flank pain as well as UTI symptoms. GI symptoms have been present 2 weeks, right flank pain has been present 2 days. Denies any fevers, sweats, chills. Endorses nausea with no vomiting. Denies any diarrhea or constipation. Patient has a history of UTIs, but no history of pyelonephritis or kidney stones. She states she's been otherwise well, however did relapsed on methamphetamine 90s ago. Since that time she has felt nausea and shakiness, but none today. Pain is rated at 9/10, constant and stabbing. Physical examination, there is right-sided flank pain without left-sided flank pain. No abdominal tenderness throughout on deep palpation. Lungs CTA, RRR. Patient appears to be in pain distress, however is nondiaphoretic. Vital signs are stable. Patient remained afebrile. Labs are unremarkable. UA shows 3+ leukocytes and 3+ WBC's. CRP 53. CT abd/pelvis: IMPRESSION: 1. THERE ARE MULTIPLE RIGHT RENAL CALCULI AND FINDINGS SUGGESTIVE OF MILD RIGHT HYDRONEPHROSIS ALTHOUGH NO URETERAL CALCULUS IS VISUALIZED. 2. CHOLELITHIASIS. Patient is given fluids, Toradol, Zofran and ceftriaxone in the ED. No evidence of pyelonephritis at this time as she is afebrile and with a normal white count. Patient will be treated with Cipro for UTI due to multiple allergies. We will send this for culture. On reexamination, after meds were given, patient is much improved and states she is denying any pain at this time. She will be discharged with prescriptions for Cipro and Toradol and pyridium. - Diagnoses Differential Diagnoses - Female: Other - Pyelonephritis, hydronephrosis, kidney stone, renal colic Provider Diagnoses: UTI (urinary tract infection) Discharge ED - Sign-Out/Discharge Documenting (check all that apply): Patient Departure Patient Received Moderate/Deep Sedation with Procedure: No - Discharge Plan Condition: Stable Disposition: HOME Prescriptions: Ciprofloxacin TAB* [Cipro 500 MG TAB*] 500 mg PO BID #14 tab Ketorolac TAB * [Toradol TAB *] 10 mg PO Q6H #16 tab Phenazopyridine TAB* [Pyridium 100 mg TAB*] 100 mg PO TID #12 tab Patient Education Materials: Urinary Tract Infection in Women (ED), Flank Pain (ED) Referrals: Madhuri Freeman DO [Primary Care Provider] - Ulysses Lundberg MD [Medical Doctor] - Additional Instructions: Dx. Urinary Tract Infection Drink plenty of fluids. Supplement with cranberry or kuhn juice. You may also take an over the counter cranberry supplement. If you have any questions about this, you may ask your pharmacist. If your symptoms have not improved in 1-2 days, if you develop fever, sweats or chills, please go to your emergency room, or call your PCP. Antibiotics were prescribed to you. Please take as directed. Supplement with over the counter probiotics on the opposite schedule of your antibiotic to prevent secondary infections. Do not take together as they may counteract each other. Pyridium: This medication is used to treat pain, burning, increased urination, and increased urge to urinate. These symptoms are usually caused by infection, injury, surgery, catheter, or other conditions that irritate the lower urinary tract. Pyridium will treat the symptoms of a urinary tract infection, but this medication does not treat the actual infection. Take the antibiotic that your doctor prescribes to treat your infection. Pyridium will most likely darken the color of your urine to an orange or red color. This is a normal effect and is not cause for alarm unless you have other symptoms such as pale or yellowed skin, fever, stomach pain, nausea, and vomiting. Darkened urine may also cause stains to your underwear, which may or may not be removed by laundering. It can also permanently stain soft contact lenses, and you should not wear them while taking this medicine. No evidence of illicit drugs in your system today CT shows multiple kidney stones, however none are obstructing - if you develop worsening kidney pain -return to the ED immediately OR - if symptoms persist, call our urologist, Dr. Lundberg for a follow up appt regarding your kidney stones Pyridium 100 mg 3 times daily Ciprofloxacin 1 tab twice daily 7 days Toradol 4 times daily 4 days - Billing Disposition and Condition Condition: STABLE Disposition: Home
--- NOTE | 2019-05-09 05:46 | ED ---
GI/ HPI - HPI Summary HPI Summary: This patient is a 24-year-old female with history of drug use and UTIs presenting to the ED with severe right-sided flank pain as well as urinary symptoms x approximately 2 weeks which is been worsening. She states she did not want to come to seek medical help at that if she was able to drink plenty of water, she would be able to treat herself at home. She states over the past 2 days, the urinary symptoms of burning, frequency, urgency have worsened and now has created right-sided flank pain. No history of pyelonephritis. 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 She is denying any nausea or vomiting at this time. She is having any abdominal pain, constipation, diarrhea, melena, hematemesis. She is requesting a drug screen as well. Denies any drug use 9 days. - History of Current Complaint Chief Complaint: EDUrogenitalProblems Time Seen by Provider: 05/07/19 15:29 Stated Complaint: BACK AND ABDOMINAL PAIN PER PT Hx Obtained From: Patient Onset/Duration: Started Days Ago Timing: Constant Severity: Moderate Current Severity: Moderate Pain Intensity: 3 Associated Signs and Symptoms: Positive: Negative Aggravating Factor(s): Nothing Alleviating Factor(s): Nothing - Allergy/Home Medications Allergies/Adverse Reactions: Allergies Allergy/AdvReac Type Severity Reaction Status Date / Time nitrofurantoin Allergy Hives Verified 05/07/19 15:28 [From Macrobid] Sulfa (Sulfonamide Allergy Hives Verified 05/07/19 15:28 Antibiotics) Home Medications: Home Medications Buprenorphine HCl/Naloxone HCl [Buprenorp-Nalox 8-2 mg Sl Film] 1 each SL DAILY 05/07/19 [History Confirmed 05/07/19] Cefdinir [Cefdinir 300 MG CAP] 300 mg PO DAILY 05/07/19 [History Confirmed 05/07] Fluconazole [Diflucan 100 mg tab] 100 mg PO DAILY 05/07/19 [History Confirmed ] Topiramate [Topiramate ER 25 mg cap] 25 mg PO DAILY 05/07/19 [History Confirmed 05/07/19] buPROPion HCl [Bupropion HCl Xl] 150 mg PO DAILY 05/07/19 [History Confirmed 08/13] PMH/Surg Hx/FS Hx/Imm Hx Previously Healthy: Yes Endocrine/Hematology History: Denies: Hx Anticoagulant Therapy, Hx Diabetes Cardiovascular History: Denies: Hx Hypertension Respiratory History: Denies: Hx Asthma - Surgical History Surgery Procedure, Year, and Place: None - Immunization History Hx Pertussis Vaccination: No Immunizations Up to Date: Yes Infectious Disease History: No Infectious Disease History: Denies: Traveled Outside the [place] in Last 30 Days - Family History Known Family History: Negative: Cardiac Disease, Hypertension, Diabetes - Social History Occupation: Unemployed Lives: With Family Alcohol Use: None Hx Substance Use: Yes Substance Use Type: Reports: Prescribed Substance Use Comment - Amount & Last Used: suboxone Smoking Status (MU): Light Every Day Tobacco Smoker Type: Cigarettes Have You Smoked in the Last Year: Yes Review of Systems Constitutional: Negative Negative: Fever, Chills, Fatigue, Skin Diaphoresis Negative: Palpitations, Chest Pain Positive: Abdominal Pain, Nausea Positive: see HPI, burning, dysuria, flank pain, hematuria, pain, urgency Negative: Arthralgia, Myalgia Negative: Rash, Bruising Neurological: Negative All Other Systems Reviewed And Are Negative: Yes Physical Exam Triage Information Reviewed: Yes Vital Signs On Initial Exam: Initial Vitals Temp Pulse Resp BP Pulse Ox 98.9 F 109 18 120/85 99 05/07/19 15:25 05/07/19 15:25 05/07/19 15:25 05/07/19 15:25 05/07/19 15:25 Vital Signs Reviewed: Yes Appearance: Positive: Well-Appearing, No Pain Distress Skin: Positive: Warm, Skin Color Reflects Adequate Perfusion Head/Face: Positive: Normal Head/Face Inspection Eyes: Positive: EOMI, MANJULA, Conjunctiva Clear Neck: Positive: Supple, No Lymphadenopathy Respiratory/Lung Sounds: Positive: Clear to Auscultation, Breath Sounds Present Cardiovascular: Positive: RRR, Pulses are Symmetrical in both Upper and Lower Extremities Abdomen Description: Positive: Nontender, No Organomegaly, CVA Tenderness (R). Negative: CVA Tenderness (L) Musculoskeletal: Positive: Normal Psychiatric: Positive: Affect/Mood Appropriate Diagnostics - Vital Signs Vital Signs Temp Pulse Resp BP Pulse Ox 05/07/19 17:33 99 F 104 16 112/70 99 05/07/19 17:31 103 112/70 100 05/07/19 17:00 105 98 05/07/19 16:55 103 99 05/07/19 15:25 98.9 F 109 18 120/85 99 - Laboratory Lab Results: Lab Results 05/07/19 05/07/19 05/07/19 Range/Units 15:45 16:08 16:08 WBC 10.1 (3.5-10.8) 10^3/uL RBC 5.09 H (3.70-4.87) 10^6 /uL Hgb 14.6 (12.0-16.0) g/dL Hct 42 (35-47) % MCV 83 (80-97) fL MCH 29 (27-31) pg MCHC 35 (31-36) g/dL RDW 14 (10-15) % Plt Count 205 (150-450) 10^3/uL MPV 7.9 (7.4-10.4) fL Neut % (Auto) 80.3 % Lymph % (Auto) 13.9 % Pennington % (Auto) 5.2 % Eos % (Auto) 0.4 % Baso % (Auto) 0.2 % Absolute Neuts (auto) 8.1 H (1.5-7.7) 10^3/ul Absolute Lymphs (auto) 1.4 (1.0-4.8) 10^3/ul Absolute Monos (auto) 0.5 (0-0.8) 10^3/ul Absolute Eos (auto) 0.0 (0-0.6) 10^3/ul Absolute Basos (auto) 0.0 (0-0.2) 10^3/ul Absolute Nucleated RBC 0.0 10^3/ul Nucleated RBC % 0.0 Sodium 136 (135-145) mmol/L Potassium 3.9 (3.5-5.0) mmol/L Chloride 107 (101-111) mmol/L Carbon Dioxide 22 (22-32) mmol/L Anion Gap 7 (2-11) mmol/L BUN 5 L (6-24) mg/dL Creatinine 0.55 (0.51-0.95) mg/dL Est GFR ( Amer) 165.7 (>60) Est GFR (Non-Af Amer) 137.0 (>60) BUN/Creatinine Ratio 9.1 (8-20) Glucose 125 H (70-100) mg/dL Lactic Acid (0.5-2.0) mmol/L Calcium 8.9 (8.6-10.3) mg/dL Magnesium 2.0 (1.9-2.7) mg/dL Total Bilirubin 0.60 (0.2-1.0) mg/dL AST 46 H (13-39) U/L ALT 102 H (7-52) U/L Alkaline Phosphatase 52 (34-104) U/L C-Reactive Protein 53.96 H (<8.01) mg/L Total Protein 6.7 (6.4-8.9) g/dL Albumin 4.1 (3.2-5.2) g/dL Globulin 2.6 (2-4) g/dL Albumin/Globulin Ratio 1.6 (1-3) Amylase 35 (29-103) U/L Lipase 12 (11.0-82.0) U/L Beta HCG, Quant < 0.60 mIU/mL Urine Color Yellow Urine Appearance Cloudy Urine pH 8.0 (5-9) Ur Specific Edison 1.011 (1.010-1.030) Urine Protein 1+(30 mg/dl) A (Negative) Urine Ketones Negative (Negative) Urine Blood 1+ A (Negative) Urine Nitrate Positive A (Negative) Urine Bilirubin Negative (Negative) Urine Urobilinogen Negative (Negative) Ur Leukocyte Esterase 3+ A (Negative) Urine WBC (Auto) 3+(>20/hpf) A (Absent) Urine RBC (Auto) Trace(0-2/hpf) (Absent) Ur Squamous Epith Cells Present A (Absent) Urine Bacteria Absent (Absent) Urine Glucose Negative (Negative) Urine Opiates Screen (None Detect) Ur Barbiturates Screen (None Detect) Ur Phencyclidine Scrn (None Detect) Ur Amphetamines Screen (None Detect) U Benzodiazepines Scrn (None Detect) Urine Cocaine Screen (None Detect) U Cannabinoids Screen (None Detect) 05/07/19 05/07/19 Range/Units 16:08 16:10 WBC (3.5-10.8) 10^3/uL RBC (3.70-4.87) 10^6 /uL Hgb (12.0-16.0) g/dL Hct (35-47) % MCV (80-97) fL MCH (27-31) pg MCHC (31-36) g/dL RDW (10-15) % Plt Count (150-450) 10^3/uL MPV (7.4-10.4) fL Neut % (Auto) % Lymph % (Auto) % Pennington % (Auto) % Eos % (Auto) % Baso % (Auto) % Absolute Neuts (auto) (1.5-7.7) 10^3/ul Absolute Lymphs (auto) (1.0-4.8) 10^3/ul Absolute Monos (auto) (0-0.8) 10^3/ul Absolute Eos (auto) (0-0.6) 10^3/ul Absolute Basos (auto) (0-0.2) 10^3/ul Absolute Nucleated RBC 10^3/ul Nucleated RBC % Sodium (135-145) mmol/L Potassium (3.5-5.0) mmol/L Chloride (101-111) mmol/L Carbon Dioxide (22-32) mmol/L Anion Gap (2-11) mmol/L BUN (6-24) mg/dL Creatinine (0.51-0.95) mg/dL Est GFR ( Amer) (>60) Est GFR (Non-Af Amer) (>60) BUN/Creatinine Ratio (8-20) Glucose (70-100) mg/dL Lactic Acid 1.5 (0.5-2.0) mmol/L Calcium (8.6-10.3) mg/dL Magnesium (1.9-2.7) mg/dL Total Bilirubin (0.2-1.0) mg/dL AST (13-39) U/L ALT (7-52) U/L Alkaline Phosphatase (34-104) U/L C-Reactive Protein (<8.01) mg/L Total Protein (6.4-8.9) g/dL Albumin (3.2-5.2) g/dL Globulin (2-4) g/dL Albumin/Globulin Ratio (1-3) Amylase (29-103) U/L Lipase (11.0-82.0) U/L Beta HCG, Quant mIU/mL Urine Color Urine Appearance Urine pH (5-9) Ur Specific Edison (1.010-1.030) Urine Protein (Negative) Urine Ketones (Negative) Urine Blood (Negative) Urine Nitrate (Negative) Urine Bilirubin (Negative) Urine Urobilinogen (Negative) Ur Leukocyte Esterase (Negative) Urine WBC (Auto) (Absent) Urine RBC (Auto) (Absent) Ur Squamous Epith Cells (Absent) Urine Bacteria (Absent) Urine Glucose (Negative) Urine Opiates Screen None detected (None Detect) Ur Barbiturates Screen None detected (None Detect) Ur Phencyclidine Scrn None detected (None Detect) Ur Amphetamines Screen None detected (None Detect) U Benzodiazepines Scrn None detected (None Detect) Urine Cocaine Screen None detected (None Detect) U Cannabinoids Screen None detected (None Detect) Result Diagrams: 05/07/19 16:08 05/07/19 16:08 Lab Statement: Any lab studies that have been ordered have been reviewed, and results considered in the medical decision making process. GIGU Course/Dx - Course Course Of Treatment: Patient appears to be in acute distress and arrival. Right -sided flank pain. UTI symptoms. UA obtained which shows evidence of UTI. CT abdomen and pelvis shows there are multiple right achilles and findings suggestive of mild right hydronephrosis although no ureteral calculus is visualized. Cholelithiasis. Patient is given Rocephin, Toradol and Zofran with good effect. Patient on reexamination is asymptomatic. Labs show elevated CRP without elevation of WBC. Patient discharged home with UTI symptoms, however will be treated to cover pyelonephritis. She is given Cipro 500 mg twice a day 7 days. She states she is okay with this plan and discharged. She will follow-up with her PCP. - Diagnoses Differential Diagnoses - Female: Cystitis, Pyelonephritis, Urinary Tract Infection, Ureteral Calculi Provider Diagnoses: UTI (urinary tract infection) Discharge ED - Sign-Out/Discharge Documenting (check all that apply): Patient Departure Patient Received Moderate/Deep Sedation with Procedure: No - Discharge Plan Condition: Stable Disposition: HOME Prescriptions: Ciprofloxacin TAB* [Cipro 500 MG TAB*] 500 mg PO BID #14 tab Ketorolac TAB * [Toradol TAB *] 10 mg PO Q6H #16 tab Phenazopyridine TAB* [Pyridium 100 mg TAB*] 100 mg PO TID #12 tab Patient Education Materials: Urinary Tract Infection in Women (ED), Flank Pain (ED) Referrals: Madhuri Freeman DO [Primary Care Provider] - Ulysses Lundberg MD [Medical Doctor] - Additional Instructions: Dx. Urinary Tract Infection Drink plenty of fluids. Supplement with cranberry or kuhn juice. You may also take an over the counter cranberry supplement. If you have any questions about this, you may ask your pharmacist. If your symptoms have not improved in 1-2 days, if you develop fever, sweats or chills, please go to your emergency room, or call your PCP. Antibiotics were prescribed to you. Please take as directed. Supplement with over the counter probiotics on the opposite schedule of your antibiotic to prevent secondary infections. Do not take together as they may counteract each other. Pyridium: This medication is used to treat pain, burning, increased urination, and increased urge to urinate. These symptoms are usually caused by infection, injury, surgery, catheter, or other conditions that irritate the lower urinary tract. Pyridium will treat the symptoms of a urinary tract infection, but this medication does not treat the actual infection. Take the antibiotic that your doctor prescribes to treat your infection. Pyridium will most likely darken the color of your urine to an orange or red color. This is a normal effect and is not cause for alarm unless you have other symptoms such as pale or yellowed skin, fever, stomach pain, nausea, and vomiting. Darkened urine may also cause stains to your underwear, which may or may not be removed by laundering. It can also permanently stain soft contact lenses, and you should not wear them while taking this medicine. No evidence of illicit drugs in your system today CT shows multiple kidney stones, however none are obstructing - if you develop worsening kidney pain -return to the ED immediately OR - if symptoms persist, call our urologist, Dr. Lundberg for a follow up appt regarding your kidney stones Pyridium 100 mg 3 times daily Ciprofloxacin 1 tab twice daily 7 days Toradol 4 times daily 4 days - Billing Disposition and Condition Condition: STABLE Disposition: Home
--- NOTE | 2019-05-10 06:06 | PN ---
Progress Note - Progress Note Date of Service: 05/07/19 Note: Urine culture grew Escherichia coli 100,000 Patient was placed on Cipro prior to discharge This is sensitive to organism No changes required
== END 2019-05-07 17:33 | disposition home or self-care (01) ==
LOC: ED 15:24
DX: N39.0 Urinary tract infection, site not specified (principal); K80.20 Calculus of gallbladder without cholecystitis without obstruction; N20.0 Calculus of kidney; Z88.2 Allergy status to sulfonamides; Z79.899 Other long term (current) drug therapy; F17.210 Nicotine dependence, cigarettes, uncomplicated
CPT/HCPCS: 36415; 74176; 80053; 80307; 81003; 81015; 82150; 83605; 83690; 83735; 84702; 85025; 86140; 87077; 87086; 87186; 96361; 96374; 96375; 99284; J1885; J2405

== ENCOUNTER 2019-07-02 15:13 | Emergency (ER) | payer OTHER ==
[2019-07-02 17:33] LABS: ABS Eosinophils 0.3 10^3/ul (0-0.6); ABS Lymphocytes 2.5 10^3/ul (1.0-4.8); ABS Monocytes 0.3 10^3/ul (0-0.8); ABS Neutrophils 4.2 10^3/ul (1.5-7.7); Eosinophil % 3.6 %; Hematocrit 35 % (35-47); Mean Corpuscular HGB Conc 34 g/dL (31-36); Mean Corpuscular Hemoglobin 30 pg (27-31); Mean Corpuscular Volume 86 fL (80-97); Mean Platelet Volume 8.5 fL (7.4-10.4); Platelet Count 188 10^3/uL (150-450); Red Blood Count 4.07 10^6 /uL (3.70-4.87); Red Cell Distribution Width 15 % (10-15); White Blood Count 7.3 10^3/uL (3.5-10.8)
[2019-07-02 17:48] LABS: Albumin 4.1 g/dL (3.2-5.2); Albumin/Globulin Ratio 1.6 (1-3); BUN/Creatinine Ratio 16.7 (8-20); Calcium 9.5 mg/dL (8.6-10.3); EGFR African American 193.9 (>60); EGFR Non-African American 160.3 (>60); Globulin 2.6 g/dL (2-4); Potassium 3.6 mmol/L (3.5-5.0); Total Bilirubin 0.3 mg/dL (0.2-1.0); Total Protein 6.7 g/dL (6.4-8.9)
--- NOTE | 2019-07-02 18:23 | ED ---
GI/ HPI - HPI Summary HPI Summary: This patient is a 24 year old F presenting to ED with a chief complaint of passing a vaginal blood clot earlier today. Patient was spotting for about half an hour and then it stopped today. Per a US taken 06/24/19, patient was 6 weeks 2 days then. She states that she has been spotting since she became . . She reports abdominal cramping as well as constipation. She has not had a bowel movement in 22 days. Patient is on colase but not Miralax. She is taking subutex. The patient rates the pain 4/10 in severity. Symptoms aggravated by nothing. Symptoms alleviated by nothing. - History of Current Complaint Chief Complaint: EDOBProblems Time Seen by Provider: 07/02/19 17:45 Stated Complaint: - VAGINAL BLEEDING PER LAW Hx Obtained From: Patient Onset/Duration: Started Hours Ago - Earlier today, Resolved - Spotting today lasted 30 minutes Timing: Intermittent, Lasting Minutes - 30 minutes Severity: Mild Current Severity: Mild Vaginal Bleeding Description: Clots Pain Intensity: 4 Associated Signs and Symptoms: Positive: Constipation, Abdominal Pain - Cramping Additional Signs & Symptoms: Positive: Vaginal Bleeding - Clots Aggravating Factor(s): Nothing Alleviating Factor(s): Nothing - Allergy/Home Medications Allergies/Adverse Reactions: Allergies Allergy/AdvReac Type Severity Reaction Status Date / Time nitrofurantoin Allergy Hives Verified 07/02/19 15:15 [From Macrobid] Sulfa (Sulfonamide Allergy Hives Verified 07/02/19 15:15 Antibiotics) Home Medications: Home Medications Buprenorphine TAB* [Subutex TAB*] 2 mg SL DAILY 07/02/19 [History Confirmed 03/13] Pnv No.95/Ferrous Fum/Folic AC [ Caplet] 1 each PO DAILY 07/02/19 [ History Confirmed 07/02/19] PMH/Surg Hx/FS Hx/Imm Hx Endocrine/Hematology History: Denies: Hx Anticoagulant Therapy, Hx Diabetes Cardiovascular History: Denies: Hx Hypertension Respiratory History: Denies: Hx Asthma - Surgical History Surgery Procedure, Year, and Place: None Infectious Disease History: No Infectious Disease History: Denies: Traveled Outside the [place] in Last 30 Days - Family History Known Family History: Negative: Cardiac Disease, Hypertension, Diabetes - Social History Alcohol Use: None Hx Substance Use: Yes Substance Use Type: Reports: Prescribed Substance Use Comment - Amount & Last Used: subutex Smoking Status (MU): Former Smoker Type: Cigarettes Have You Smoked in the Last Year: Yes Review of Systems Gastrointestinal: Other - Constipation Positive: Abdominal Pain - Cramping Genitourinary: Other - Vaginal spotting All Other Systems Reviewed And Are Negative: Yes Physical Exam - Summary Physical Exam Summary: Constitutional: Well-developed, Well-nourished, Alert. (-) Distressed Skin: Warm, Dry HENT: Normocephalic; Atraumatic Eyes: Conjunctiva normal Neck: Musculoskeletal ROM normal neck. (-) JVD, (-) Stridor, (-) Tracheal deviation Cardio: Rhythm regular, rate normal, Heart sounds normal; Intact distal pulses; The pedal pulses are 2+ and symmetric. Radial pulses are 2+ and symmetric. Pulmonary/Chest wall: Effort normal. (-) Respiratory distress, (-) Wheezes, (-) Rales Abd: Abdomen is soft. I cannot feel the fundus. I can palpate the transverse colon, but it is not tender. Musculoskeletal: (-) Edema Neuro: Alert, Oriented x3 Psych: Mood and affect Normal Triage Information Reviewed: Yes Vital Signs On Initial Exam: Initial Vitals Temp Pulse Resp BP Pulse Ox 97.8 F 85 16 110/65 100 07/02/19 15:14 07/02/19 15:14 07/02/19 15:14 07/02/19 15:14 07/02/19 15:14 Vital Signs Reviewed: Yes Procedures - Sedation Patient Received Moderate/Deep Sedation with Procedure: No Diagnostics - Vital Signs Vital Signs Temp Pulse Resp BP Pulse Ox 07/02/19 17:36 81 113/61 98 07/02/19 15:14 97.8 F 85 16 110/65 100 - Laboratory Lab Results: Lab Results 07/02/19 07/02/19 07/02/19 Range/Units 17:23 17:23 17:23 WBC 7.3 (3.5-10.8) 10^3/uL RBC 4.07 (3.70-4.87) 10^6 /uL Hgb 12.0 (12.0-16.0) g/dL Hct 35 (35-47) % MCV 86 (80-97) fL MCH 30 (27-31) pg MCHC 34 (31-36) g/dL RDW 15 (10-15) % Plt Count 188 (150-450) 10^3/uL MPV 8.5 (7.4-10.4) fL Neut % (Auto) 58.3 % Lymph % (Auto) 34.0 % Banner % (Auto) 3.9 % Eos % (Auto) 3.6 % Baso % (Auto) 0.2 % Absolute Neuts (auto) 4.2 (1.5-7.7) 10^3/ul Absolute Lymphs (auto) 2.5 (1.0-4.8) 10^3/ul Absolute Monos (auto) 0.3 (0-0.8) 10^3/ul Absolute Eos (auto) 0.3 (0-0.6) 10^3/ul Absolute Basos (auto) 0.0 (0-0.2) 10^3/ul Absolute Nucleated RBC 0.0 10^3/ul Nucleated RBC % 0.0 Sodium 135 (135-145) mmol/L Potassium 3.6 (3.5-5.0) mmol/L Chloride 103 (101-111) mmol/L Carbon Dioxide 27 (22-32) mmol/L Anion Gap 5 (2-11) mmol/L BUN 8 (6-24) mg/dL Creatinine 0.48 L (0.51-0.95) mg/dL Est GFR ( Amer) 193.9 (>60) Est GFR (Non-Af Amer) 160.3 (>60) BUN/Creatinine Ratio 16.7 (8-20) Glucose 85 (70-100) mg/dL Calcium 9.5 (8.6-10.3) mg/dL Total Bilirubin 0.30 (0.2-1.0) mg/dL AST 35 (13-39) U/L ALT 78 H (7-52) U/L Alkaline Phosphatase 40 (34-104) U/L Total Protein 6.7 (6.4-8.9) g/dL Albumin 4.1 (3.2-5.2) g/dL Globulin 2.6 (2-4) g/dL Albumin/Globulin Ratio 1.6 (1-3) Beta HCG, Quant Pending Blood Type A Positive Antibody Screen Negative Result Diagrams: 07/02/19 17:23 07/02/19 17:23 Lab Statement: Any lab studies that have been ordered have been reviewed, and results considered in the medical decision making process. - Ultrasound Ultrasound Interpretation Completed By: Radiologist Summary of Ultrasound Findings: THERE IS A SINGLE INTRAUTERINE WITH AN APPROXIMATE GESTATIONAL AGE OF 7 WEEKS 2 DAYS. THE HEART RATE IS [address] Lucia has reviewed this radiology report. GIGU Course/Dx - Course Course Of Treatment: This patient is a 24 year old F presenting to ED with a chief complaint of passing a vaginal blood clot earlier today. Patient is refusing rectal suppository and vaginal exam. Blood work revealed creatinine 0.48, ALT 78. US revealed THERE IS A SINGLE INTRAUTERINE WITH AN APPROXIMATE GESTATIONAL AGE OF 7 WEEKS 2 DAYS. THE HEART RATE IS 150 BPM. Discussed results with patient. Patient will be discharged home with dx of threatened miscarriage. Patient understands and agrees with this plan. - Diagnoses Provider Diagnoses: Threatened miscarriage Discharge ED - Sign-Out/Discharge Documenting (check all that apply): Patient Departure - Discharge - Discharge Plan Condition: Good Disposition: HOME Patient Education Materials: Threatened Miscarriage (ED), Constipation (ED) Referrals: Azam Guerrero MD [Medical Doctor] - - Billing Disposition and Condition Condition: GOOD Disposition: Home - Attestation Statements Document Initiated by Darlene: Yes Documenting Scribe: Mahesh Villa Provider For Whom Darlene is Documenting (Include Credential): Martín Lucia MD Scribe Attestation: Mahesh Eason, scribed for Martín Lucia MD on 07/02/19 at 1913. Scribe Documentation Reviewed: Yes Provider Attestation: The documentation as recorded by the Mahesh barahona accurately reflects the service I personally performed and the decisions made by me, Martín Lucia MD Status of Scribe Document: Viewed
[2019-07-02 18:37] VITALS: BP 106/52
== END 2019-07-02 18:47 | disposition home or self-care (01) ==
LOC: ED 15:13
DX: O20.0 Threatened abortion (principal); Z3A.01 Less than 8 weeks gestation of pregnancy; Z87.891 Personal history of nicotine dependence; Z79.899 Other long term (current) drug therapy; Z88.1 Allergy status to other antibiotic agents; Z88.2 Allergy status to sulfonamides
CPT/HCPCS: 36415; 76815; 80053; 84702; 85025; 86850; 86900; 86901; 99282